=== PATIENT | male | born 1995 | race Caucasian/White ===

== ENCOUNTER 2017-12-04 18:28 | Emergency (ER) | payer OTHER ==
[~2017-12-04] VITALS: Ht 175.3 cm; Wt 56.7 kg
[2017-12-04] MEDS ORDERED: LORAZEPAM 0.5 MG TABLET (18:44)
[2017-12-04] MEDS ORDERED: IV NORMAL SALINE 1000 ML BAG IV ONE (19:00)
[2017-12-04] MEDS ORDERED: ONDANSETRON ODT 4 MG TAB.RAPDIS SL ONE (19:00)
[2017-12-04] MEDS ORDERED: KETOROLAC TROMETHAMINE 15 MG INJ IV ONE (19:00)
--- NOTE | 2017-12-04 19:10 | NUR ---
Patient refuse toradol and zofran, states he'll be ok, and nausea not that severe. MD notified.
[2017-12-04 19:16] LABS: BASOPHILS % (AUTO) 0.3 % (0.0-2.0); EOSINOPHILS % (AUTO) 0.1 % (0.0-7.0); HEMATOCRIT 46.6 % (36.7-47.1); HEMOGLOBIN 16.3 g/dL (12.5-16.3); LYMPHOCYTES # (AUTO) 0.9 K/uL (20.0-40.0); LYMPHOCYTES % (AUTO) 6.5 % (20.5-51.5); MEAN CORPUSCULAR HGB CONC 35 g/dL (32.5-36.3); MEAN CORPUSCULAR VOLUME 85.9 fL (73.0-96.2); MONOCYTES # (AUTO) 1.3 K/uL (2.0-10.0); MONOCYTES % (AUTO) 9.2 % (0.0-11.0); NEUTROPHILS # (AUTO) 11.5 K/uL (1.8-8.9); NEUTROPHILS % (AUTO) 83.9 % (38.5-71.5); PLATELET COUNT (AUTO) 250 K/uL (152-348); RED BLOOD CELL COUNT(AUTO) 5.43 MIL/uL (4.06-5.63); WHITE BLOOD COUNT (AUTO) 13.7 K/uL (3.6-10.2)
[2017-12-04 19:35] LABS: BILIRUBIN,DIRECT 0.2 mg/dL (0.0-0.2); BILIRUBIN,TOTAL 1.2 mg/dL (0.2-1.0); CREATININE 1.1 mg/dL (0.6-1.3); POTASSIUM 3.8 mmol/L (3.5-5.1); TOTAL PROTEIN, SERUM 8.8 g/dL (6.4-8.2)
--- NOTE | 2017-12-04 19:35 | NUR ---
Patient out of ER for CT.
[2017-12-04 19:43] LABS: *BILIRUBIN,URIN NEGATIVE (NEGATIVE); *BLOOD, URINE NEGATIVE (NEGATIVE); *CLARITY,URINE SLIGHTLY CLOUDY (CLEAR); *COLOR,URINE YELLOW (YELLOW); *KETONES,URINE 1+ (NEGATIVE); *PROTEIN,URINE 1+ (NEGATIVE); LEUKOCYTE ESTERASE ,URINE NEGATIVE (NEGATIVE); NITRITE, URINE NEGATIVE (NEGATIVE); PH,URINE 7.5 (5.0-8.0); UGLUCOSE NEGATIVE (NEGATIVE)
--- NOTE | 2017-12-04 19:50 | NUR ---
Patient back to ER from CT.
[2017-12-04 19:51] LABS: BACTERIA,URINE NONE SEEN /HPF (NONE SEEN); RBC,URINE NONE SEEN /HPF (0-3); SQUAMOUS EPITHELIAL CELL,UR FEW /HPF (NONE SEEN); WBC,URINE 0-3 /HPF (0-3)
--- NOTE | 2017-12-04 20:09 | NUR ---
Patient states pain on the middle abdominal quadrant a little less, no nausea.
[2017-12-04] MEDS ORDERED: PIPERACILLIN/TAZOBACTAM/D5W 50 ML IV ONE (21:27)
[2017-12-04] MEDS ORDERED: PIPERACILLIN SODIUM/TAZOBACTAM 3.375 G in IV DEXTROSE 5% 50 ML IV ONE (21:30)
--- NOTE | 2017-12-04 21:46 | NUR ---
Dr. Foster spoke with [facility], Dr. Lindsey.
--- NOTE | 2017-12-04 21:46 | NUR ---
Gail baer in [facility] - 12/04/[address] Foster supervisor communications and signals with [facility].
--- NOTE | 2017-12-04 21:49 | NUR ---
Patient pending transfer to [facility].
--- NOTE | 2017-12-04 22:51 | NUR ---
[facility] patient going to room 312D, . ETA for ambulance 1-2 hours.
--- NOTE | 2017-12-04 23:02 | NUR ---
Patient in bed, no acute signs of distress.
--- NOTE | 2017-12-05 00:04 | NUR ---
Patient in bed, reports pain about 3/10 now, just feeling a little anxious.
--- NOTE | 2017-12-05 00:11 | NUR ---
Passed SBAR report to [facility].
--- NOTE | 2017-12-05 00:15 | NUR ---
Transport ambulance arrived to ER, report given, to transport patient to [facility].
--- NOTE | 2017-12-05 00:25 | NUR ---
Patient out of ER on [facility] via ambulance transport, all belongings taken, CD provided, VSS, no acute signs of distress, enroute to [facility].
== END 2017-12-05 00:32 | disposition short-term general hospital (02) ==
LOC: ER 18:29
DX: K35.80 Unspecified acute appendicitis (principal); Z79.899 Other long term (current) drug therapy
CPT/HCPCS: 36415; 83690; 85025; A4663; J2543

== ENCOUNTER 2017-12-21 11:47 | Emergency (ER) | payer OTHER ==
[~2017-12-21] VITALS: Ht 177.8 cm; Wt 56.7 kg
[~2017-12-21 11:47] MED LIST: LORAZEPAM 0.5 MG TABLET
[2017-12-21] MEDS ORDERED: IV NORMAL SALINE 100 ML ONE (12:12)
[2017-12-21] MEDS ORDERED: IOHEXOL 300MG/ML 100 ML INFUS..BTL ONE (12:12)
[2017-12-21 12:16] LABS: *BILIRUBIN,URIN NEGATIVE (NEGATIVE); *BLOOD, URINE NEGATIVE (NEGATIVE); *CLARITY,URINE CLEAR (CLEAR); *COLOR,URINE YELLOW (YELLOW); *KETONES,URINE NEGATIVE (NEGATIVE); *PROTEIN,URINE NEGATIVE (NEGATIVE); *UROBILINOGEN,URINE 0.2 E.U./dl (NORMAL); LEUKOCYTE ESTERASE ,URINE NEGATIVE (NEGATIVE); NITRITE, URINE NEGATIVE (NEGATIVE); PH,URINE 6.5 (5.0-8.0); UGLUCOSE NEGATIVE (NEGATIVE)
[2017-12-21 12:18] LABS: BASOPHILS # (AUTO) 0.1 K/uL (0.0-8.0); EOSINOPHILS # (AUTO) 0.2 K/uL (0.0-0.7); EOSINOPHILS % (AUTO) 2.7 % (0.0-7.0); HEMATOCRIT 45.7 % (36.7-47.1); LYMPHOCYTES # (AUTO) 1.7 K/uL (20.0-40.0); LYMPHOCYTES % (AUTO) 27.5 % (20.5-51.5); MEAN CORPUSCULAR HEMOGLOBIN 30.5 uug (23.8-33.4); MEAN CORPUSCULAR HGB CONC 35 g/dL (32.5-36.3); MEAN CORPUSCULAR VOLUME 87.2 fL (73.0-96.2); MONOCYTES # (AUTO) 0.6 K/uL (2.0-10.0); MONOCYTES % (AUTO) 9.2 % (0.0-11.0); NEUTROPHILS # (AUTO) 3.7 K/uL (1.8-8.9); NEUTROPHILS % (AUTO) 59.6 % (38.5-71.5); PLATELET COUNT (AUTO) 318 K/uL (152-348); RED BLOOD CELL COUNT(AUTO) 5.25 MIL/uL (4.06-5.63); WHITE BLOOD COUNT (AUTO) 6.1 K/uL (3.6-10.2)
[2017-12-21 12:31] LABS: BILIRUBIN,DIRECT 0.2 mg/dL (0.0-0.2); BILIRUBIN,TOTAL 0.8 mg/dL (0.2-1.0); CREATININE 1.2 mg/dL (0.6-1.3); POTASSIUM 3.7 mmol/L (3.5-5.1); TOTAL PROTEIN, SERUM 8.8 g/dL (6.4-8.2)
[2017-12-21 12:33] LABS: BACTERIA,URINE NONE SEEN /HPF (NONE SEEN); MUCUS,URINE MODERATE /LPF (0-FEW); RBC,URINE 0-3 /HPF (0-3); SQUAMOUS EPITHELIAL CELL,UR FEW /HPF (NONE SEEN); WBC,URINE 0-3 /HPF (0-3)
--- NOTE | 2017-12-21 12:45 | NUR ---
Pt states he is waiting for his mother to call back as he wants to speak with her before he signs the consent for CT with IV contrast.
--- NOTE | 2017-12-21 13:00 | NUR ---
Pt signed consent for CT abd/pelvis with IV contrast after speaking with .
--- NOTE | 2017-12-21 13:03 | NUR ---
Pt to CT via w/c with mammography technician ADALBERTO Pena noted.
--- NOTE | 2017-12-21 13:28 | NUR ---
Pt resting in [place] with NAD noted at this time.
--- NOTE | 2017-12-21 14:17 | NUR ---
Patient discharged to home in stable conditon. Written and verbal after care instructions given. Patient verbalizes understanding of instructions. Stressed follow up or return to ER for worsening s/s.
== END 2017-12-21 14:18 | disposition home or self-care (01) ==
LOC: ER 11:47
DX: R10.9 Unspecified abdominal pain (principal); Z90.49 Acquired absence of other specified parts of digestive tract; Z79.899 Other long term (current) drug therapy
CPT/HCPCS: 36415; 83690; 85025; A4663; J3490; Q9967

== ENCOUNTER 2017-12-23 21:27 | Emergency (ER) | payer OTHER ==
[~2017-12-23] VITALS: Ht 175.3 cm; Wt 56.7 kg
[2017-12-23] MEDS ORDERED: LIDOCAINE VISCUS 2% 15 ML UDC ONE ×4 (21:57→21:58)
[2017-12-23] MEDS ORDERED: PANTOPRAZOLE SODIUM 40 MG TABLET.DR PO ONE ×2 (21:57→22:00)
[2017-12-23] MEDS ORDERED: MAG HYDROX/AL HYDROX/SIMETH 30 ML LIQUID UDC ONE (21:57)
[2017-12-23] MEDS ORDERED: LIDOCAINE VISCUS 2% 15 ML UDC MM ONE (22:00)
[2017-12-23] MEDS ORDERED: MAG HYDROX/AL HYDROX/SIMETH 30 ML LIQUID UDC PO ONE (22:00)
--- NOTE | 2017-12-23 22:54 | NUR ---
Patient discharged to home in stable conditon. Written and verbal after care instructions given. Patient verbalizes understanding of instructions.
== END 2017-12-23 22:54 | disposition home or self-care (01) ==
LOC: ER 21:27
DX: R10.13 Epigastric pain (principal); Z90.49 Acquired absence of other specified parts of digestive tract; Z79.899 Other long term (current) drug therapy
CPT/HCPCS: A4663

== ENCOUNTER 2017-12-30 14:06 | Emergency (ER) | payer OTHER ==
[~2017-12-30] VITALS: Ht 177.8 cm; Wt 54.4 kg
[2017-12-30] MEDS ORDERED: OMEP40CA PO (14:15)
--- NOTE | 2017-12-30 14:37 | NUR ---
Patient discharged to home in stable conditon. Written and verbal after care instructions given. Patient verbalizes understanding of instructions.
== END 2017-12-30 14:37 | disposition home or self-care (01) ==
LOC: ER 14:07
DX: R10.84 Generalized abdominal pain (principal); F41.9 Anxiety disorder, unspecified; Z90.49 Acquired absence of other specified parts of digestive tract; Z79.899 Other long term (current) drug therapy
CPT/HCPCS: 99284; A4663

== ENCOUNTER 2018-03-07 17:06 | Emergency (ER) | payer OTHER ==
[~2018-03-07] VITALS: Ht 175.3 cm; Wt 54.9 kg
[~2018-03-07 17:06] MED LIST changes: -LORAZEPAM 0.5 MG TABLET; +OMEP40CA PO
--- NOTE | 2018-03-07 18:36 | NUR ---
Pt and family decided to leave without being seen by MD.
--- NOTE | 2018-03-07 18:39 | NUR ---
Patient left without being seen by ER physician.
== END 2018-03-07 19:15 | disposition left against medical advice (07) ==
LOC: ER 17:07
DX: Z53.21 Procedure and treatment not carried out due to patient leaving prior to being seen by health care provider (principal)
CPT/HCPCS: A4663

== ENCOUNTER 2019-05-27 01:05 | Emergency (ER) | payer OTHER ==
[~2019-05-27] VITALS: Ht 177.8 cm; Wt 54.4 kg
--- NOTE | 2019-05-27 01:51 | NUR ---
pt received ambulatory +guarding of right flank pain since this morning from home pt nad able to provide urine sample, denies hematuria, denies dysuria denies fevers/chills/nvd MD AT BEDSIDE FOR HX AND PHYSICAL BED AT LOWEST POSITION PT SITTING ON GURNEY. KEPT SAFE
--- NOTE | 2019-05-27 02:03 | NUR ---
CENTRIFUGAL OPERATOR AT BEDSIDE
[2019-05-27 02:12] LABS: BASOPHILS % (AUTO) 0.4 % (0.0-2.0); EOSINOPHILS # (AUTO) 0.1 K/uL (0.0-0.7); EOSINOPHILS % (AUTO) 1.1 % (0.0-7.0); HEMATOCRIT 44.8 % (36.7-47.1); HEMOGLOBIN 15.9 g/dL (12.5-16.3); LYMPHOCYTES % (AUTO) 25.7 % (20.5-51.5); MEAN CORPUSCULAR HEMOGLOBIN 31.4 uug (23.8-33.4); MEAN CORPUSCULAR HGB CONC 36 g/dL (32.5-36.3); MEAN CORPUSCULAR VOLUME 88.5 fL (73.0-96.2); MONOCYTES # (AUTO) 0.7 K/uL (2.0-10.0); MONOCYTES % (AUTO) 9.5 % (0.0-11.0); NEUTROPHILS % (AUTO) 63.3 % (38.5-71.5); PLATELET COUNT (AUTO) 257 K/uL (152-348); RED BLOOD CELL COUNT(AUTO) 5.06 MIL/uL (4.06-5.63); WHITE BLOOD COUNT (AUTO) 7.9 K/uL (3.6-10.2)
[2019-05-27 02:28] LABS: BILIRUBIN,DIRECT 0.2 mg/dL (0.0-0.2); BILIRUBIN,TOTAL 0.7 mg/dL (0.2-1.0); CREATININE 1.1 mg/dL (0.6-1.3); POTASSIUM 3.6 mmol/L (3.5-5.1); TOTAL PROTEIN, SERUM 8.2 g/dL (6.4-8.2)
[2019-05-27 02:30] LABS: *BILIRUBIN,URIN NEGATIVE (NEGATIVE); *BLOOD, URINE NEGATIVE (NEGATIVE); *CLARITY,URINE CLEAR (CLEAR); *COLOR,URINE YELLOW (YELLOW); *KETONES,URINE NEGATIVE (NEGATIVE); *UROBILINOGEN,URINE 0.2 E.U./dl (NORMAL); LEUKOCYTE ESTERASE ,URINE NEGATIVE (NEGATIVE); NITRITE, URINE NEGATIVE (NEGATIVE); UGLUCOSE NEGATIVE (NEGATIVE)
--- NOTE | 2019-05-27 03:39 | NUR ---
PT WAS SITTING ON BED, STATES "JUST HAVING ANXIETY ATTACK. I HAVE BEEN OFF ANTI ANXIETY MEDS FOR A YEAR. AND I JUST GET ANXIETY ATTACKS MORE FREQUENTLY FOR THE PAST MONTH" INCREASING RESPIRATION AT 22/MIN HR: 96-100 BTS/MIN SPO2 100% REASSURED, REORIENTED ERMD AWARE
--- NOTE | 2019-05-27 03:44 | NUR ---
ACCOMPANIED BY RIBBON SWEATB[employer] OPERATOR VIA WHEELCHAIR PT ABLE TO TOLERATE PO MEDS ORDERED
[2019-05-27] MEDS ORDERED: ALPRAZOLAM 0.25 MG TABLET PO ONE (03:45)
[2019-05-27] MEDS ORDERED: ALPRAZOLAM 0.25 MG TABLET ONE (03:46)
--- NOTE | 2019-05-27 03:52 | NUR ---
PT BACK FROM CT VIA WHEELCHAIR ACCOMPANIED BY DECORATOR STREET AND BUILDING PT NAD
[2019-05-27 04:23] VITALS: BP 119/77
--- NOTE | 2019-05-27 04:23 | NUR ---
PT AMBULATORY W/ STABLE GAIT ALL BELONGINGS W/ PT Patient discharged to home in stable conditon. Written and verbal after care instructions given. Patient verbalizes understanding of instructions.
== END 2019-05-27 04:24 | disposition home or self-care (01) ==
LOC: ER 01:11
DX: R10.9 Unspecified abdominal pain (principal); F41.9 Anxiety disorder, unspecified; Z90.49 Acquired absence of other specified parts of digestive tract; Z79.899 Other long term (current) drug therapy
CPT/HCPCS: 36415; 70030-TC; 83690; 85025; A4663